=== PATIENT | male | born 1970 | race Caucasian/White ===

== ENCOUNTER 2022-02-02 22:38 | Emergency (ER) | payer SELFPAY ==
[~2022-02-02] VITALS: Ht 172.7 cm; Wt 77.0 kg
[2022-02-03] MEDS ORDERED: HYDROCODONE/ACETAMINOPHEN 5/325MG TABLET PO ONE (02:15)
[2022-02-03 03:02] VITALS: BP 105/66
[2022-02-03] MEDS ORDERED: CYCL10TA7 MT (03:17)
[2022-02-03] MEDS ORDERED: NAPR-1176 MT (03:17)
== END 2022-02-03 03:18 | disposition home or self-care (01) ==
LOC: ER 22:38
DX: S80.12XA Contusion of left lower leg, initial encounter (principal); M54.50 Low back pain, unspecified; Y08.89XA Assault by other specified means, initial encounter; Y93.89 Activity, other specified; Y92.018 Other place in single-family (private) house as the place of occurrence of the external cause
CPT/HCPCS: 72100; 73590; 99284; Z7610

== ENCOUNTER 2022-04-27 16:32 | Emergency (ER) | payer MEDICAID ==
[~2022-04-27] VITALS: Ht 165.1 cm; Wt 70.0 kg
[~2022-04-27 16:32] MED LIST: CYCL10TA21 MT; NAPR-1176 MT
[2022-04-27] MEDS ORDERED: HYDROCODONE/ACETAMINOPHEN 5/325MG TABLET PO ONE (16:45)
[2022-04-27] MEDS ORDERED: BACITRACIN ZINC OINT UDPKT TOP ONE (17:15)
[2022-04-27] MEDS ORDERED: LIDOCAINE HCL/PF 1% 10 MG/ML 5ML VIAL INFIL ONE (17:15)
[2022-04-27 18:00] VITALS: BP 121/76
== END 2022-04-27 18:00 | disposition home or self-care (01) ==
LOC: ER 16:32
DX: S63.257A Unspecified dislocation of left little finger, initial encounter (principal); M25.532 Pain in left wrist; W22.8XXA Striking against or struck by other objects, initial encounter; Y93.89 Activity, other specified; Y92.89 Other specified places as the place of occurrence of the external cause; Y99.8 Other external cause status
CPT/HCPCS: 26770; 73110; 73130; 99284; J3490